=== PATIENT | male | born 1980 | race Caucasian/White ===

== ENCOUNTER 2019-11-21 12:16 | Emergency (ER) | payer SELFPAY ==
[~2019-11-21] VITALS: Ht 188 cm; Wt 75.0 kg
--- NOTE | 2019-11-21 12:42 | NUR ---
THIS 39 YOM MALE TO ED VIA WC W/ COMPLAINTS OF "EXTREME, INTENSE" GENERALIZED ABD PAIN S/P LIFTING A "VERY HEAVY COUCH" BY SELF. PT ANXIOUS, RESTLESS ON GURNEY. PT PLACED ON MONITORS, AWARE PENDING ERP EVAL.
[2019-11-21] MEDS ORDERED: LORazepam 2 MG/ML, 1ML ONE (12:58)
[2019-11-21] MEDS ORDERED: ONDANSETRON 2MG/ML, 2ML ONE (12:58)
[2019-11-21] MEDS ORDERED: HYDROmorphone 2 MG/ML, 1ML ONE (12:59)
[2019-11-21] MEDS ORDERED: ONDANSETRON 2MG/ML, 2ML IVPush ONE (13:00)
[2019-11-21] MEDS ORDERED: HYDROmorphone 2 MG/ML, 1ML IVPush PRN (13:00)
[2019-11-21] MEDS ORDERED: SODIUM CHLORIDE FLUSH 10ML SYR IVF ONE (13:00)
[2019-11-21] MEDS ORDERED: LORazepam 2 MG/ML, 1ML IVPush ONE (13:00)
[2019-11-21] MEDS ORDERED: SODIUM CHLORIDE 0.9% 1,000ML IVBOLUS ONE (13:00)
--- NOTE | 2019-11-21 13:17 | NUR ---
PT MEDICATED ORDERED. REPORTS "ALMOST FULL RELIEF" W/ PAIN MEDICATION, ABLE TO REST QUIETLY AT THIS TIME. PT AND FRIEND UPDATED ON POC INCLUDING PENDING TESTS AND CHART REVIEW BY ERP. DENIED ANY QUESTIONS/CONCERNS AT THIS TIME.
--- NOTE | 2019-11-21 13:19 | NUR ---
PT TAKEN TO RADIOLOGY
[2019-11-21 13:26] LABS: BASOPHILS # (AUTO) 0.06 x10^3/uL (0-0.1); BASOPHILS % (AUTO) 1 % (0-1); EOSINOPHILS # (AUTO) 0.24 x10^3/uL (0-0.4); EOSINOPHILS % (AUTO) 2 % (1-7); LYMPHOCYTES # (AUTO) 1.84 x10^3/uL (1-3.4); LYMPHOCYTES % (AUTO) 16 % (22-44); MD NO; MEAN CORPUSCULAR HEMOGLOBIN 32.4 pg (27.5-34.5); MEAN CORPUSCULAR HGB CONC 33.6 g/dL (33.2-36.2); MEAN CORPUSCULAR VOLUME 96.3 fL (81-97); MEAN PLATELET VOLUME 8.4 fL (7.4-10.4); MONOCYTES # (AUTO) 0.78 x10^3/uL (0.2-0.8); MONOCYTES % (AUTO) 7 % (2-9); NEUTROPHILS # (AUTO) 8.27 x10^3/uL (1.8-6.8); NEUTROPHILS % (AUTO) 74 % (42-75); PLATELET COUNT 224 x10^3/uL (130-400); RED BLOOD COUNT 5.53 x10^6/uL (4.38-5.82); RED CELL DISTRIBUTION WIDTH 13.1 % (9.4-14.8)
[2019-11-21 13:29] LABS: ALBUMIN 4.1 g/dL (3.4-5.0); ANION GAP 10 mmol/L (5-15); CALCIUM 9.7 mg/dL (8.5-10.1); CHLORIDE 102 mmol/L (98-107)
[2019-11-21 13:32] LABS: ALANINE AMINOTRANSFERASE 31 U/L (12-78); ALKALINE PHOSPHATASE 82 U/L (45-117); BILIRUBIN,TOTAL 1.7 mg/dL (0.2-1.0); CREATININE 1.22 mg/dL (0.7-1.3); TOTAL PROTEIN 8.6 g/dL (6.4-8.2)
--- NOTE | 2019-11-21 14:27 | NUR ---
PT TAKEN TO CT
[2019-11-21] MEDS ORDERED: OMNIPAQUE 350 MG/ML, 100ML BOTTLE ONE (14:55)
--- NOTE | 2019-11-21 14:59 | NUR ---
PT BACK FROM RADIOLOGY, AWARE WAITING FOR FINAL TEST RESULTS AND CHART REVIEW BY ERP.
[2019-11-21 15:52] VITALS: BP 124/76
--- NOTE | 2019-11-21 15:58 | NUR ---
REVIEWED DISCHARGE INSTRUCTIONS AND PRINTED PRESCRIPTION X 1 W/ PT, VERBALIZED UNDERSTANDING TO INFORMATION PROVIDED INCLUDING FOLLOW UP CARE, RETURN PRECAUTIONS, HAND HYGIENE AND NARCOTIC PRECAUTIONS, DENIED QUESTIONS/CONCERNS. PT AMBULATED FROM ED W/ FRIEND, NO SIGNS OF DISTRESS NOTED AT TIME OF DISCHARGE.
[2019-11-22] MEDS ORDERED: DILTIAZEM 5 MG/ML, 5ML ONE (09:18)
[2019-11-26] MEDS ORDERED: LIDOCAINE 1%-EPI 1:100K, 20ML ONE (07:27)
== END 2019-11-21 17:53 | disposition home or self-care (01) ==
LOC: ED 17:42
DX: R10.84 Generalized abdominal pain (principal); R74.0 Nonspecific elevation of levels of transaminase and lactic acid dehydrogenase [LDH]; R11.2 Nausea with vomiting, unspecified; F17.200 Nicotine dependence, unspecified, uncomplicated
CPT/HCPCS: 36415; 74018; 74177; 80053; 83605; 83690; 85025; 93005; 96361; 96374; 96375; 99285; J1170; J2060; J2405; J7030; Q9967